=== PATIENT | female | born 1965 | race Hispanic/Latino ===

== ENCOUNTER 2017-01-12 19:02 | Inpatient (IN) | payer MEDICAID ==
[2017-01-12 19:02] VITALS: BMI 46.2
[2017-01-12] MEDS ORDERED: Sodium Chloride 0.9% 1,000 ML IV ONE (20:04)
[2017-01-12] MEDS ORDERED: Sodium Chloride 0.9% 1,000 ML ONE (20:19)
[2017-01-12 20:26] LABS: BASO # 0.1 K/uL (0.0-0.2); BASO % 0.6 % (0.0-2.0); EOS % 0.5 % (0.0-4.0); HEMATOCRIT 28.3 % (34.0-47.0); LYMPH % 20.9 % (20.0-40.0); MEAN CORPUSCULAR HEMOGLOBIN 16.4 pg (27.0-31.0); MEAN CORPUSCULAR HGB CONC 30.5 g/dL (33.0-37.0); MEAN PLATELET VOLUME 9.3 fL (7.2-11.7); MONO # 0.4 K/uL (0.0-0.8); MONO % 4.2 % (0.0-10.0); NRBC % 0.1 % (0.0-2.0); RED CELL DISTRIBUTION WIDTH 19.1 % (11.5-14.5); WHITE BLOOD COUNT 9.6 K/uL (4.8-10.8)
[2017-01-12 20:30] LABS: MEAN CELL VOLUME 53.9 fL (81.0-99.0)
[2017-01-12 20:36] LABS: CHLORIDE 86 mmol/L (98-107)
[2017-01-12 20:37] LABS: POTASSIUM 4.2 mmol/L (3.6-5.2); SODIUM 123 mmol/L (132-148)
[2017-01-12 20:39] LABS: ALB/GLOB RATIO 1.2 (1.0-2.1); AST/SGOT 18 U/L (14-36); BILIRUBIN,TOTAL 0.7 mg/dL (0.2-1.3); CARBON DIOXIDE 24 mmol/L (22-30); GFR AFRICAN-AMERICAN > 60; TOTAL PROTEIN 7.5 g/dL (6.3-8.3)
[2017-01-12 20:40] LABS: ALKALINE PHOSPHATASE 79 U/L (38-126); ALT/SGPT 22 U/L (9-52); BLOOD UREA NITROGEN 13 mg/dL (7-17); CALCIUM 8.6 mg/dl (8.6-10.4); GLUCOSE,RANDOM 235 mg/dL (65-105); MAGNESIUM 1.4 mg/dL (1.6-2.3)
[2017-01-12 20:50] LABS: RBC URINE < 1 /hpf (0-3); URINE BILIRUBIN NEGATIVE (NEGATIVE); URINE BLOOD NEGATIVE (NEGATIVE); URINE COLOR Yellow (YELLOW); URINE GLUCOSE (UA) 3+ mg/dL (Normal); URINE KETONE TRACE mg/dL (NEGATIVE); URINE LEUKOCYTE ESTERASE NEG Leu/uL (Negative); URINE PROTEIN NEGATIVE (NEGATIVE); URINE UROBILINOGEN NORMAL mg/dL (0.2-1.0); WBC URINE < 1 /hpf (0-5)
[2017-01-12] MEDS ORDERED: Magnesium Sulfate 1 gm in D5W 1 GM/100 ML BAG IVPB ONE ×2 (21:17→21:48)
--- NOTE | 2017-01-12 22:11 | C.PDOC ---
Time Seen by Provider: 01/12/17 19:49 Chief Complaint (Nursing): Dizziness/Lightheaded History Per: Patient History/Exam Limitations: other (Psychiatric disorder) Onset/Duration Of Symptoms: Hrs Current Symptoms Are (Timing): Still Present Seizure Or Post-ictal Symptoms: None Possible Causative Factor(s): Other (Pt has been drinking a lot of "Diet Coke") Fall Associated With With Symptoms: No Severity: Moderate Additional History Per: Prior Records - Symptoms Of CVA Recent Head Trauma: No Past Medical History Reviewed: Historical Data, Nursing Documentation, Vital Signs Vital Signs: Last Vital Signs Temp 98.2 F 01/12/17 22:23 Pulse 76 01/12/17 22:23 Resp 12 01/12/17 22:23 BP 141/73 01/12/17 22:23 Pulse Ox 98 01/12/17 22:23 - Medical History PMH: Anemia, Anxiety, Bipolar Disorder, Depression, Diabetes (type II), GERD, HTN, Hyperlipidemia, Chronic Kidney Disease, Schizophrenia, Sleep Apnea, Chronic Pain Surgical History: Tonsillectomy - [facility] Procedures GAIT TRAINING/AMBULAT TREATMENT USING ASSIST EQUIPMENT (11/11/15) INTRODUCTION OF SERUM/TOX/VACCINE INTO MUSCLE, PERC APPROACH (11/11/15) Family History: States: Unknown Family Hx - Social History Hx Tobacco Use: Yes Hx Alcohol Use: No Hx Substance Use: No - Immunization History Hx Tetanus Toxoid Vaccination: Yes Hx Influenza Vaccination: Yes Hx Pneumococcal Vaccination: No Review Of Systems Except As Marked, All Systems Reviewed And Found Negative. Constitutional: Negative for: Fever Cardiovascular: Negative for: Chest Pain Respiratory: Negative for: Shortness of Breath Gastrointestinal: Negative for: Vomiting, Abdominal Pain Musculoskeletal: Negative for: Neck Pain Skin: Negative for: Rash Neurological: Negative for: Weakness, Seizures Physical Exam - Physical Exam Appears: No Acute Distress Skin: Warm, Dry Head: Atraumatic Eye(s): bilateral: PERRL, EOMI Neck: Normal ROM, Supple Cardiovascular: Rhythm Regular Respiratory: Normal Breath Sounds, No Accessory Muscle Use Gastrointestinal/Abdominal: Soft, No Tenderness Extremity: Normal ROM Neurological/Psych: Oriented x3, Normal Motor, Normal Sensation ED Course And Treatment - Laboratory Results Result Diagrams: 01/12/17 20:22 01/12/17 20:22 Lab Interpretation: Abnormal Interpretation Of Abnormal: Hyponatremia. Anemia. ECG: Interpreted By Me, Viewed By Me ECG Rhythm: Sinus Rhythm, Nonspecific Changes ECG Interpretation: No Acute Changes Rate From EC O2 Sat by Pulse Oximetry: 98 Pulse Ox Interpretation: Normal Progress - Interventions Interventions:: Observation, Intravenous fluid - Medications Administered Intravenous: Other (Mg) - Data Reviewed Data Reviewed: Lab, EKG, Old records - Patient Status Patient status: Partially improved - Continuity of Care Discussed patient case with:: Patient, ED Nurse, On-call PMD-pt unassigned Disposition Discussed With DrOrlando: Qi Parekh Comment: He accepted pt on his service and gave admitting orders to the nurse. Doctor Will See Patient In The: Hospital Counseled Patient/Family Regarding: Studies Performed, Diagnosis - Disposition Disposition: HOSPITALIZED Disposition Time: 22:37 Condition: FAIR - Clinical Impression Clinical Impression: Anemia, Hyponatremia, Dizziness
--- NOTE | 2017-01-12 23:45 | CP.PCM.HP ---
Past Patient History - Infectious Disease Hx of Infectious Diseases: None - Past Medical History & Family History Past Medical History?: Yes - Past Social History Smoking Status: Former Smoker - CARDIAC Hx Hypertension: Yes - PULMONARY Hx Sleep Apnea: Yes - HEENT Other/Comment: hard of hearing - RENAL Hx Chronic Kidney Disease: Yes - ENDOCRINE/METABOLIC Hx Diabetes Mellitus Type 2: Yes - HEMATOLOGICAL/ONCOLOGICAL Hx Anemia: Yes - INTEGUMENTARY Hx Eczema: Yes - MUSCULOSKELETAL/RHEUMATOLOGICAL Hx Degenerative Joint Disease: Yes Other/Comment: chronic pain - GASTROINTESTINAL Hx Gastroesophageal Reflux: Yes - GENITOURINARY/GYNECOLOGICAL Hx Genitourinary Disorders: No - PSYCHIATRIC Hx Anxiety: Yes Hx Bipolar Disorder: Yes Hx Depression: Yes Hx Schizophrenia: Yes Hx Substance Use: No - SURGICAL HISTORY Hx Tonsillectomy: Yes - ANESTHESIA Hx Anesthesia: Yes Hx Anesthesia Reactions: No Meds Allergies/Adverse Reactions: Allergies Allergy/AdvReac Type Severity Reaction Status Date / Time Benzodiazepines Allergy Verified 01/12/17 19:14 Penicillins Allergy Verified 01/12/17 19:14 anticholinergics Allergy ITCHING Uncoded 01/12/17 19:14 Results - Vital Signs Recent Vital Signs: Last Vital Signs Temp 98.2 F 01/12/17 22:23 Pulse 76 01/12/17 22:23 Resp 12 01/12/17 22:23 BP 141/73 01/12/17 22:23 Pulse Ox 98 01/12/17 22:38 - Labs Result Diagrams: 01/12/17 20:22 01/12/17 20:22
[2017-01-13 01:39] VITALS: RESP 20
[2017-01-13] MEDS: (Novolog) Insulin Aspart, Recombinant 100 u/ml 10 ml vial SC SCH ×4 (07:45→21:35)
--- NOTE | 2017-01-13 08:02 | CP.PCM.PN ---
Subjective - Date & Time of Evaluation Date of Evaluation: 01/13/17 Time of Evaluation: 10:00 - Subjective Subjective: Dr. Yan Parekh note: Patient seen in room. She reports feeling weak and that is why she came here. She also say she drank alot of diet pepsi but not water. She has drank too much soda before in the past. Objective - Vital Signs/Intake and Output Vital Signs (last 24 hours): Temp Pulse Resp BP Pulse Ox 98.2 F 75 20 163/85 H 98 01/13/17 00:00 01/13/17 00:00 01/13/17 03:24 01/13/17 00:00 01/13/17 00:00 Intake and Output: 01/13/17 01/13/17 06:59 18:59 Intake Total 120 Balance 120 - Medications Medications: Current Medications Enoxaparin Sodium (Lovenox) 40 mg SC DAILY [facility] (Gabapentin) 100 mg PO BID [facility] (Losartan Potassium) 50 mg PO DAILY [facility] (Metformin) 1,000 mg PO BID [facility] (Temazepam [Restoril]) 30 mg PO DAILY [facility] (Trazodone) 200 mg PO HS [facility] Insulin Aspart (Novolog) 0 unit SC ACHS [facility] PRN Reason: Protocol Pantoprazole Sodium (Protonix Ec Tab) 40 mg PO DAILY [facility] Sitagliptin Phosphate (Januvia) 100 mg PO DAILY [facility] Tramadol HCl (Ultram) 50 mg PO Q6 PRN PRN Reason: Pain, moderate (4-7) - Constitutional Appears: Non-toxic, No Acute Distress - Head Exam Head Exam: NORMAL INSPECTION - Eye Exam Eye Exam: Normal appearance - ENT Exam ENT Exam: Normal Exam - Neck Exam Neck Exam: Normal Inspection - Respiratory Exam Respiratory Exam: Clear to Ausculation Bilateral. absent: Rhonchi, Wheezes - Cardiovascular Exam Cardiovascular Exam: REGULAR RHYTHM, RRR, +S1, +S2. absent: Gallop, Rubs - GI/Abdominal Exam GI & Abdominal Exam: Soft, Normal Bowel Sounds. absent: Tenderness - Extremities Exam Extremities Exam: Normal Inspection - Back Exam Back Exam: NORMAL INSPECTION - Psychiatric Exam Psychiatric exam: Anxious, Manic - Skin Skin Exam: Dry, Normal Color Assessment and Plan (1) Hyponatremia Assessment & Plan: Fluid restricted diet of 1500 cc. Repeat CMP of 133 today, last night her CMP was 123, will repeat CMP tomorrow morning. Also follow up urine electrolytes and osmolality. Status: Acute (2) Anemia Assessment & Plan: Hbg is 9.1 which is around her baseline. Status: Acute (3) DM type 2 (diabetes mellitus, type 2) Assessment & Plan: continue her home medication, accu checks with sliding scale. 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 Varela's consult, help appreciated. Medication is managed per Psych consulted Dr. Varela. Status: Chronic (6) Prophylactic measure Assessment & Plan: Lovenox, Protonix 40mg Status: Acute
[2017-01-13] MEDS ORDERED: METFORMIN 1000 MG PO SCH (10:00)
[2017-01-13] MEDS ORDERED: GABAPENTIN 100 MG PO SCH (10:00)
[2017-01-13] MEDS ORDERED: LOSARTAN POTASSIUM 50 MG PO SCH (10:00)
[2017-01-13] MEDS ORDERED: Enoxaparin 150 mg Syringe SC SCH (10:00)
[2017-01-13] MEDS: Pantoprazole 40 mg EC Tab PO SCH (11:08)
[2017-01-13 11:15] LABS: BASO % 0.3 % (0.0-2.0); EOS # 0.1 K/uL (0.0-0.7); EOS % 0.6 % (0.0-4.0); HEMATOCRIT 29.1 % (34.0-47.0); LYMPH # 2.2 K/uL (1.0-4.3); LYMPH % 23.4 % (20.0-40.0); MEAN CELL VOLUME 53.7 fL (81.0-99.0); MEAN CORPUSCULAR HEMOGLOBIN 16.8 pg (27.0-31.0); MEAN CORPUSCULAR HGB CONC 31.2 g/dL (33.0-37.0); MEAN PLATELET VOLUME 9.3 fL (7.2-11.7); MONO # 0.5 K/uL (0.0-0.8); MONO % 5.2 % (0.0-10.0); RED CELL DISTRIBUTION WIDTH 18.8 % (11.5-14.5); WHITE BLOOD COUNT 9.4 K/uL (4.8-10.8)
[2017-01-13 11:29] LABS: CHLORIDE 96 mmol/L (98-107); SODIUM 133 mmol/L (132-148)
[2017-01-13 11:30] LABS: POTASSIUM 4.1 mmol/L (3.6-5.2)
[2017-01-13 11:32] LABS: ALB/GLOB RATIO 1.2 (1.0-2.1); ALKALINE PHOSPHATASE 68 U/L (38-126); ALT/SGPT 22 U/L (9-52); AST/SGOT 21 U/L (14-36); BILIRUBIN,TOTAL 0.5 mg/dL (0.2-1.3); BLOOD UREA NITROGEN 11 mg/dL (7-17); CARBON DIOXIDE 23 mmol/L (22-30); GFR AFRICAN-AMERICAN > 60; GLUCOSE,RANDOM 224 mg/dL (65-105); TOTAL PROTEIN 7.2 g/dL (6.3-8.3)
--- NOTE | 2017-01-13 12:40 | PCM.PSYCH ---
Initial Psychiatric Evaluation - Initial Psychiatric Evaluation Type of Admission: Voluntary Legal Status: Capacity Chief Complaint (in patient's own words): "I overdosed on diet Pepsi." History of Present Illness and Precipitating Events: Pt is a 51 year old female who lives in a residential. She is and has 5 children. She does not work, and gets SSI. Consult was asked for her psych sxs and dx Pt states she overdosed on diet Pepsi 2 days ago. She states she drank 4 20- ounce bottles and a 2 liter bottle. She denies overdosing on any medications since the medications are given out by the staff at the residential. She denies drug use, alcohol use, suicidal ideation, homicidal ideation, hallucinations, paranoia. Pt states she has difficulty sleeping, and when she cannot sleep, she stays in bed or watches TV. Pt says she cannot take trazodone as it "does not sit well" with her gemfibrozil. She takes Zyprexa and restoril too (30 mg) but they don't work either. She looks disorganized but denies other acute schizophrenic sxs, which is her dx past psych hx: Admissions but "long ago" Medical: Obese, DM, high chol Family psych hx: Unknown Pt gave [facility] information to nursing staff. Will contact [facility] to obtain more information. Current Medications: Active Medications Generic Name Dose Route Start Last Admin Trade Name Freq PRN Reason Stop Dose Admin Enoxaparin Sodium 40 mg 01/14/17 12:15 Lovenox SC DAILY [facility] Gabapentin 100 mg 01/13/17 11:15 Neurontin PO BID [facility] Insulin Aspart 0 unit 01/13/17 07:30 01/13/17 07:45 Novolog SC 3 unit ACHS [facility] Administration Protocol Losartan Potassium 50 mg 01/13/17 11:15 01/13/17 11:41 Cozaar PO 50 mg DAILY [facility] Administration Metformin HCl 1,000 mg 01/13/17 11:15 01/13/17 11:43 Glucophage PO 1,000 mg BIDCC [facility] Administration Pantoprazole Sodium 40 mg 01/13/17 10:00 01/13/17 11:08 Protonix Ec Tab PO 40 mg DAILY [facility] Administration Sitagliptin Phosphate 100 mg 01/13/17 10:00 01/13/17 10:08 Januvia PO 100 mg DAILY [facility] Administration Temazepam 30 mg 01/13/17 22:00 Restoril PO HS [facility] Tramadol HCl 50 mg 01/12/17 22:40 Ultram PO Q6 PRN Pain, moderate (4-7) Trazodone HCl 200 mg 01/13/17 22:00 Desyrel PO HS [facility] Zolpidem Tartrate 5 mg 01/13/17 10:53 Ambien PO HS PRN Insomnia Past Psychiatric History - Past Psychiatric History Previous Treatment History: Inpatient Pertinent Medical Hx (Current Medical&Sleep Prob, Allergies): Allergies Allergy/AdvReac Type Severity Reaction Status Date / Time Benzodiazepines Allergy ITCHING Verified 01/13/17 01:36 diphenhydramine Allergy ITCHING Verified 01/13/17 01:36 [From Benadryl] Penicillins Allergy ITCHING Verified 01/13/17 01:36 anticholinergics Allergy ITCHING Uncoded 01/12/17 19:14 traZODone 200 mg PO HS 05/20/14 Temazepam [Restoril] 30 mg PO DAILY 07/22/14 Gabapentin 100 mg PO BID 10/26/14 Losartan Potassium 50 mg PO DAILY 10/26/14 MetFORMIN 1,000 mg PO BID 10/26/14 traMADol [Ultram] 50 mg PO Q6 #30 tab 11/07/15 SITagliptin [Januvia] 100 mg PO ONCE 11/10/15 Review of Systems - Review of Systems All systems: reviewed and no additional remarkable complaints except - Psychiatric Psychiatric: Abnormal Sleep Pattern, Anxiety. absent: Hallucinations, Homicidal Ideation, Paranoia, Suicidal Ideation Mental Status Examination - Personal Presentation Personal Presentation: Looks older than stated age (disheveled, odd) - Affect Affect: Broad - Motor Activity Motor Activity: Calm - Reliability in Providing Information Reliability in Providing Information: Poor, due to cognitve impairment Additional comments: Hearing loss - Speech Speech: Disorganized, Tangential - Mood Mood: Anxious - Formal Thought Process Formal Thought Process: No Impairment - Obsessions/Compulsions Obsessions: No Compulsions: No - Cognitive Functions Orientation: Person, Place, Situation, Time Sensorium: Alert Attention/Concentration: Attentive Abstract Thinking: Bowie Estimate of Intelligence: Below average Judgement: Imparied, as evidence by: Poor judgement Memory: Recent intact, as evidence by: Ability to recall events of the day, Remote impaired as evidenced by: Inability to recall sig life events - Risk Risk: Diminished functioning - Strength & Assets Inventory Strength & Assets Inventory: Cooperative - Limitations Limitations: Living alone DSM 5 DX - DSM 5 DSM 5 Diagnosis: Chronic Schizophrenia - Recommended/Plan of Treatment Treatment Recommendations and Plan of Treatment: Chronic schizophrenia - Zyprexa 10 mg HS ordered. her dose is not known - Neurontin 100 mg PO BID - Trazodone 200 mg PO - CBT - Psychoeducation - Supportive therapy, group therapy, individual therapy - Add prn Paolaien Contact [facility] for collateral info on her bhv, sxs and meds. 33 min - Smoking Cessation Smoking Cessation Initiated: No
[2017-01-13] MEDS: Enoxaparin 40 mg Syringe SC SCH (12:46)
--- NOTE | 2017-01-13 14:23 | CP.PCM.PN ---
Subjective - Date & Time of Evaluation Date of Evaluation: 01/13/17 Time of Evaluation: 09:00 - Subjective Subjective: clinically same Objective - Vital Signs/Intake and Output Vital Signs (last 24 hours): Temp Pulse Resp BP Pulse Ox 98.8 F 96 H 20 149/71 99 01/13/17 08:23 01/13/17 08:23 01/13/17 08:23 01/13/17 08:23 01/13/17 08:23 Intake and Output: 01/13/17 01/13/17 06:59 18:59 Intake Total 120 Balance 120 - Medications Medications: Current Medications Enoxaparin Sodium (Lovenox) 40 mg SC DAILY [facility] Last Admin: 01/13/17 12:46 Dose: 40 mg Gabapentin (Neurontin) 100 mg PO BID [facility] Last Admin: 01/13/17 12:47 Dose: 100 mg Insulin Aspart (Novolog) 0 unit SC ACHS [facility] PRN Reason: Protocol Last Admin: 01/13/17 11:47 Dose: 3 unit Losartan Potassium (Cozaar) 50 mg PO DAILY [facility] Last Admin: 01/13/17 11:41 Dose: 50 mg Metformin HCl (Glucophage) 1,000 mg PO BIDCC [facility] Last Admin: 01/13/17 11:43 Dose: 1,000 mg Pantoprazole Sodium (Protonix Ec Tab) 40 mg PO DAILY [facility] Last Admin: 01/13/17 11:08 Dose: 40 mg Sitagliptin Phosphate (Januvia) 100 mg PO DAILY [facility] Last Admin: 01/13/17 10:08 Dose: 100 mg Temazepam (Restoril) 15 mg PO HS [facility] Tramadol HCl (Ultram) 50 mg PO Q6 PRN PRN Reason: Pain, moderate (4-7) Trazodone HCl (Desyrel) 200 mg PO HS [facility] Zolpidem Tartrate (Ambien) 5 mg PO HS PRN PRN Reason: Insomnia - Labs Labs: 01/13/17 11:05 01/13/17 11:05 - Constitutional Appears: Well - Head Exam Head Exam: ATRAUMATIC, NORMAL INSPECTION, NORMOCEPHALIC - Eye Exam Eye Exam: EOMI, Normal appearance, PERRL Pupil Exam: NORMAL ACCOMODATION, PERRL - ENT Exam ENT Exam: Mucous Membranes Moist, Normal Exam - Neck Exam Neck Exam: Full ROM, Normal Inspection. absent: Lymphadenopathy - Respiratory Exam Respiratory Exam: Decreased Breath Sounds - Cardiovascular Exam Cardiovascular Exam: REGULAR RHYTHM, +S1, +S2 - GI/Abdominal Exam GI & Abdominal Exam: Soft, Diminished Bowel Sounds - Rectal Exam Rectal Exam: Deferred
[2017-01-13] MEDS ORDERED: Docusate-Senna 50 mg-8.6 mg Tab PO SCH (22:00)
[2017-01-13] MEDS ORDERED: TRAZODONE 200 MG PO SCH (22:00)
[2017-01-14 07:25] LABS: BASO % 0.3 % (0.0-2.0); EOS # 0.1 K/uL (0.0-0.7); HEMATOCRIT 28.8 % (34.0-47.0); LYMPH # 3.2 K/uL (1.0-4.3); LYMPH % 37.4 % (20.0-40.0); MEAN CELL VOLUME 54.7 fL (81.0-99.0); MEAN CORPUSCULAR HEMOGLOBIN 16.6 pg (27.0-31.0); MEAN CORPUSCULAR HGB CONC 30.4 g/dL (33.0-37.0); MEAN PLATELET VOLUME 9.4 fL (7.2-11.7); MONO # 0.5 K/uL (0.0-0.8); MONO % 6.4 % (0.0-10.0); RED CELL DISTRIBUTION WIDTH 19.5 % (11.5-14.5); WHITE BLOOD COUNT 8.6 K/uL (4.8-10.8)
[2017-01-14 08:05] LABS: CHLORIDE 99 mmol/L (98-107)
[2017-01-14 08:06] LABS: POTASSIUM 3.8 mmol/L (3.6-5.2); SODIUM 135 mmol/L (132-148)
[2017-01-14 08:08] LABS: ALB/GLOB RATIO 1.3 (1.0-2.1); ALKALINE PHOSPHATASE 70 U/L (38-126); AST/SGOT 16 U/L (14-36); BILIRUBIN,TOTAL 0.5 mg/dL (0.2-1.3); BLOOD UREA NITROGEN 12 mg/dL (7-17); CARBON DIOXIDE 21 mmol/L (22-30); GFR AFRICAN-AMERICAN > 60; GLUCOSE,RANDOM 196 mg/dL (65-105); TOTAL PROTEIN 6.6 g/dL (6.3-8.3)
[2017-01-14 08:09] LABS: ALT/SGPT 21 U/L (9-52); CALCIUM 8.4 mg/dl (8.6-10.4)
[2017-01-14] MEDS: (Novolog) Insulin Aspart, Recombinant 100 u/ml 10 ml vial SC SCH ×3 (08:13→17:00)
[2017-01-14] MEDS ORDERED: Enoxaparin 40 mg Syringe SC SCH ×2 (10:00→12:15)
[2017-01-14] MEDS: Enoxaparin 40 mg Syringe SC SCH (10:37)
[2017-01-14] MEDS: Pantoprazole 40 mg EC Tab PO SCH (10:37)
--- NOTE | 2017-01-14 12:11 | CARD ---
APPROVED REPORT EKG Measurement Heart [id number] <Conclusion> Normal sinus rhythm Possible Anterior infarct, age undetermined Abnormal ECG
--- NOTE | 2017-01-14 12:40 | PCM.PYCHPN ---
Psychiatric Progress Note - Psychiatric Progress Note Patient seen today, length of contact: 15 min Patient Chief Complaint: "I feel good and slept well." Problems Identified/Issues Discussed: Pt seen and evaluated, chart reviewed, case discussed with nurse. Pt states she is feeling much better and was able to sleep through the night. Pt refuses zyprexa, stating "It doesn't sit well with me, I'll have to wear diapers." Pt will continue with abilify. Spoke to [facility] supervisor - on 01/13 ([phone]) about pt case. She states pt has a history of uncontrolled eating and snacking, and sleeps excessively. Symptoms are improving. Support and psychoeducation given. Time: 15 min Medication Change: Yes Medical Record Reviewed: Yes Mental Status Examination - Cognitive Function Orientation: Person, Place, Situation, Time Memory: Intact Attention: Poor Concentration: WNL Association: WNL Fund of Knowledge: Poor - Mood Mood: Neutral - Affect Affect: Broad - Speech Speech: Appropriate - Formal Thought Process Formal Thought Process: No Impairment - Suicidal Ideation Suicidal Ideation: No - Homicidal Ideation Homicidal Ideation: No Goal/Treatment Plan - Goal/Treatment Plan Need for Continued Stay: Remain at risks for inpatient hospitalization Progress Toward Problem(s) and Goals/Treatment Plan: Chronic schizophrenia - Zyprexa 10 mg HS - Neurontin 100 mg PO BID - Trazodone 200 mg PO - Abilify 5 mg PO HS - CBT - Psychoeducation - Supportive therapy, group therapy, individual therapy - Add prn Ambien 15 min
--- NOTE | 2017-01-14 14:09 | CP.PCM.PN ---
Subjective - Date & Time of Evaluation Date of Evaluation: 01/14/17 Time of Evaluation: 09:15 - Subjective Subjective: PGY2 Medicine Note - Dr. Dianna Parekh's service: Patient seen and examined at bedside this AM. Patient says she feels much better and wants to go home. Patient denies fever, chills, chest pain, SOB, pain anywhere. Objective - Vital Signs/Intake and Output Vital Signs (last 24 hours): Temp Pulse Resp BP Pulse Ox 98.8 F 109 H 20 149/81 95 01/14/17 08:00 01/14/17 08:00 01/14/17 08:00 01/14/17 08:00 01/14/17 08:00 Intake and Output: 01/14/17 01/14/17 06:59 18:59 Intake Total 650 600 Balance 650 600 - Medications Medications: Current Medications Aripiprazole (Abilify) 5 mg PO HS [facility] Last Admin: 01/13/17 21:34 Dose: 5 mg Docusate Sodium (Colace) 100 mg PO BID [facility] Last Admin: 01/14/17 10:37 Dose: 100 mg Enoxaparin Sodium (Lovenox) 40 mg SC DAILY [facility] Last Admin: 01/14/17 10:37 Dose: 40 mg Gabapentin (Neurontin) 100 mg PO BID [facility] Last Admin: 01/14/17 10:37 Dose: 100 mg Insulin Aspart (Novolog) 0 unit SC [facility] PRN Reason: Protocol Last Admin: 01/14/17 11:58 Dose: 3 unit Losartan Potassium (Cozaar) 50 mg PO DAILY [facility] Last Admin: 01/14/17 10:37 Dose: 50 mg Metformin HCl (Glucophage) 1,000 mg PO BIDCC [facility] Last Admin: 01/14/17 08:15 Dose: 1,000 mg Olanzapine (Zyprexa) 10 mg PO HS [facility] Last Admin: 01/13/17 21:36 Dose: 10 mg Pantoprazole Sodium (Protonix Ec Tab) 40 mg PO DAILY [facility] Last Admin: 01/14/17 10:37 Dose: 40 mg Senna/Docusate Sodium (Senokot S 50 Mg-8.6 Mg) 2 tab PO HS [facility] Last Admin: 01/13/17 21:35 Dose: 2 tab Sitagliptin Phosphate (Januvia) 100 mg PO DAILY [facility] Last Admin: 01/14/17 10:38 Dose: 100 mg Temazepam (Restoril) 15 mg PO HS [facility] Last Admin: 01/13/17 21:35 Dose: 15 mg Tramadol HCl (Ultram) 50 mg PO Q6 PRN PRN Reason: Pain, moderate (4-7) Trazodone HCl (Desyrel) 200 mg PO HS [facility] Last Admin: 01/13/17 21:39 Dose: 200 mg Zolpidem Tartrate (Ambien) 5 mg PO HS PRN PRN Reason: Insomnia - Labs Labs: 01/14/17 07:07 01/14/17 07:07 - Constitutional Appears: Non-toxic, No Acute Distress - Head Exam Head Exam: NORMAL INSPECTION - Eye Exam Eye Exam: EOMI - ENT Exam ENT Exam: Mucous Membranes Moist - Respiratory Exam Respiratory Exam: Clear to Ausculation Bilateral, NORMAL BREATHING PATTERN. absent: Rales, Rhonchi, Wheezes - Cardiovascular Exam Cardiovascular Exam: REGULAR RHYTHM, +S1, +S2. absent: Gallop, Rubs, Murmur - GI/Abdominal Exam GI & Abdominal Exam: Soft, Normal Bowel Sounds. absent: Distended, Firm, Tenderness - Extremities Exam Extremities Exam: Normal Capillary Refill. absent: Pedal Edema - Neurological Exam Neurological Exam: Alert, Awake, Oriented x3 - Psychiatric Exam Psychiatric exam: Normal Affect, Normal Mood - Skin Skin Exam: Normal Color, Warm Assessment and Plan - Assessment and Plan (Free Text) Assessment: (1) Hyponatremia Assessment & Plan: Fluid restricted diet of 1500 cc. Repeat CMP of 135 today, on admission her CMP was 123. D/C home with instructions to decrease fluid. instructed to get sodium checked in 2 days Status: Acute (2) Anemia Assessment & Plan: Hbg is 8.8 which is around her baseline. 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 Varela's consult, help appreciated. Medication is managed per Psych consulted Dr. Varela. Patient given script for Abilify and Zyprexa Status: Chronic (6) Prophylactic measure Assessment & Plan: Lovenox, Protonix 40mg Status: Acute Management per Dr. Dianna Parekh
[2017-01-14 16:03] VITALS: BP 118/76; PULSE 101; TEMP 99; O2SAT 97
== END 2017-01-14 17:20 | disposition home or self-care (01) | DRG 296 ==
LOC: C.ER 19:02 → C.9E 22:38 → C.3T 22:54
PROVIDERS: ADMIT Internal Medicine Nephrology; ATTEND Internal Medicine Nephrology
DX: E87.1 Hypo-osmolality and hyponatremia (principal); D64.9 Anemia, unspecified; R42 Dizziness and giddiness; I10 Essential (primary) hypertension; E11.9 Type 2 diabetes mellitus without complications; E66.9 Obesity, unspecified; R63.1 Polydipsia; F20.9 Schizophrenia, unspecified; Z68.42 Body mass index [BMI] 45.0-49.9, adult; Z79.899 Other long term (current) drug therapy